=== PATIENT | female | born 1975 | race Caucasian/White ===

== ENCOUNTER 2018-08-04 07:14 | Emergency (ER) | payer BC ==
[~2018-08-04] VITALS: Ht 170.2 cm; Wt 99.0 kg
[2018-08-04 07:14] VITALS: BP 163/106
[~2018-08-04 07:14] MED LIST: METF500T16 PO
[2018-08-04] MEDS ORDERED: IV NORMAL SALINE 1,000ML 1,000 ML IV SCH (07:32)
--- NOTE | 2018-08-04 07:38 | PHYS DOC ---
Past History Past Medical History: Hypertension, Kidney Stones, Ovarian Cyst Past Surgical History: Cholecystectomy, Hysterectomy, Spleenectomy Alcohol Use: None Drug Use: None Adult General Chief Complaint Chief Complaint: FLANK PAIN HPI HPI Patient is a 43 year old female who presents with left flank pain, nausea, and vomiting. This started at approximately 4 AM today waking the patient up from sleep. No blood in the emesis. No diarrhea. No blood in the stool. Patient does have a previous history of kidney stones requiring lithotripsy which was performed in [place], [place]. This feels like her previous kidney stone. She denies any blood in the urine, and no dysuria. No fever. No position of comfort. No home medicines attempted. Patient is also treated for hypertension and has not taken her antihypertensives this morning. [] Review of Systems Review of Systems Constitutional: Denies fever or chills [] Eyes: Denies change in visual acuity, redness, or eye pain [] HENT: Denies nasal congestion or sore throat [] Respiratory: Denies cough or shortness of breath [] Cardiovascular: No chest pains or palpitations[] GI: See history of present illness[] : Denies dysuria or hematuria [] Musculoskeletal: Denies back pain or joint pain [] Integument: Denies rash or skin lesions [] Neurologic: Denies headache, focal weakness or sensory changes [] Endocrine: Denies polyuria or polydipsia [] All other systems were reviewed and found to be within normal limits, except as documented in this note. Allergies Allergies Allergies Coded Allergies Type Severity Reaction Last Updated Verified No Known Drug Allergies 06/26/15 No Physical Exam Physical Exam Constitutional: Well developed, well nourished, moderate discomfort, rocking on the bed, non-toxic appearance. [] HENT: Normocephalic, atraumatic, bilateral external ears normal, oropharynx moist, no oral exudates, nose normal. [] Eyes: PERRLA, EOMI, conjunctiva normal, no discharge. [] Neck: Normal range of motion, no tenderness, supple, no stridor. [] Cardiovascular:Heart rate regular rhythm, no murmur [] Lungs & Thorax: Bilateral breath sounds clear to auscultation [] Abdomen: Bowel sounds normal, soft, no tenderness, no masses, no pulsatile masses. [] Skin: Warm, dry, no erythema, no rash. [] Back: No tenderness, left CVA tenderness is present. [] Extremities: No tenderness, no cyanosis, no clubbing, ROM intact, no edema. [] Neurologic: Alert and oriented X 3, normal motor function, normal sensory function, no focal deficits noted. [] Psychologic: Affect normal, judgement normal, mood normal. [] EKG EKG [] Radiology/Procedures Radiology/Procedures CT scan of the abdomen and pelvis IMPRESSION: 1. Mild left renal hydronephrosis associated with a 3 mm obstructing ureteropelvic junction calculus. 2. Appendix is negative. 3. Nonobstructing small right renal calculi. 4. 5 x 2 cm left ovarian cystic mass. This could be further assessed with pelvic sonography. [] Course & Med Decision Making Course & Med Decision Making Pertinent Labs and Imaging studies reviewed. (See chart for details) ED course: Patient arrived, was placed in bed, and tolerated exam well. Patient was transported to and from [place] with ankle medications. Patient did receive pain relief with the medications administered. After the return of the laboratory and imaging findings, these were discussed with the patient who voiced understanding as well as the understanding the need for follow-up given the ovarian cystic structure post hysterectomy. Patient was discharged in improved condition. Medical decision making: This appears to be a kidney stone without evidence of infection, no evidence of a stone that will not pass. We'll start the patient on pain medicine as well as Flomax to assist with passage of the stone. Believe the ovarian cystic mass to be an incidental finding that can be followed as an outpatient. No evidence of appendicitis nor other intra-abdominal significant pathology that requires urgent or emergent intervention.[] Dragon Disclaimer Dragon Disclaimer This electronic medical record was generated, in whole or in part, using a voice recognition dictation system. Departure Departure: Impression: Primary Impression: Nephrolithiasis Disposition: 01 HOME, SELF-CARE Condition: GOOD Referrals: JANEEN RODRIGUEZ MD (PCP) Follow-up in 2 days Patient Instructions: Diet for Kidney Stones, Kidney Stones Additional Instructions: Follow-up with your primary care physician in 2 days. There was an incidental finding of left ovarian cystic mass 5 x 2 cm. This needs to be followed up by your primary care physician and can be further assessed with pelvic ultrasound. Drink plenty of fluids. Return to the ER if worsening pain, unable to tolerate liquids, or any other concerns. Scripts Hydrocodone Bit/Acetaminophen (NORCO 5-325 TABLET) 1 Each Tablet 1-2 TAB PO Q4-6HRS for severe pain, #20 TAB Prov: HERNANDO SPAULDING DO 08/04/18 Ondansetron Hcl (ZOFRAN) 4 Mg Tablet 1 TAB PO Q8HRS for nausea or vomiting, #30 TAB Prov: HERNANDO SPAULDING DO 08/04/18 Tamsulosin Hcl (FLOMAX) 0.4 Mg Cap.er.24h 1 CAP PO DAILY for kidney stone, #10 CAP 0 Refills Prov: HERNANDO SPAULDING DO 08/04/18 Meloxicam (MELOXICAM) 7.5 Mg Tablet 7.5 MG PO DAILY for PAIN, #20 TAB Prov: HERNANDO SPAULDING DO 08/04/18 HERNANDO SPAULDING DO Aug 04, 2018 07:38
[2018-08-04] MEDS ORDERED: KETOROLAC 30 MG/ML VIAL. IV ONE (07:45)
[2018-08-04] MEDS ORDERED: MORPHINE SULFATE 2 MG/ML DISP.SYRIN. IV/SQ PRN (07:45)
[2018-08-04] MEDS ORDERED: PROCHLORPERAZINE 10 MG/2 ML VIAL. IV ONE (07:45)
[2018-08-04 07:52] LABS: AMORPHOUS SEDIMENT,UR PRESENT /HPF; BACTERIA,URINE 0 /HPF (0-FEW); BILIRUBIN,URINE NEG (NEG); CLARITY,URINE CLOUDY; COLOR,URINE YELLOW; GLUCOSE,URINE NEG (NEG); NITRITE,URINE NEG (NEG); RBC,URINE >40 /HPF (0-2); SQUAMOUS EPITHELIAL CELL,UR OCC /LPF; UROBILINOGEN,URINE 0.2 mg/dL (0.2 mg/dL); WBC,URINE 0 /HPF (0-4)
[2018-08-04 08:12] LABS: BASO # 0.1 x10^3/uL (0.0-0.2); BASO % 1 % (0-3); EOS # 0.1 x10^3/uL (0.0-0.7); EOS % 1 % (0-3); HEMATOCRIT 43.2 % (36.0-47.0); LYMPH # 1.7 x10^3/uL (1.0-4.8); LYMPH % 22 % (24-48); MEAN CORPUSCULAR HEMOGLOBIN 30 pg (25-35); MEAN CORPUSCULAR HGB CONC 35 g/dL (31-37); MEAN CORPUSCULAR VOLUME 86 fL (79-100); MONO # 0.4 x10^3/uL (0.0-1.1); MONO % 5 % (0-9); NEUT # 5.5 x10^3uL (1.8-7.7); NEUT % 71 % (31-73); PLATELET COUNT 280 x10^3/uL (140-400); RED BLOOD COUNT 5.04 x10^6/uL (3.50-5.40); RED CELL DISTRIBUTION WIDTH 13.2 % (11.5-14.5); WHITE BLOOD COUNT 7.7 x10^3/uL (4.0-11.0)
[2018-08-04 08:23] LABS: ALBUMIN 4.1 g/dL (3.4-5.0); ALBUMIN/GLOBULIN RATIO 1.1 (1.0-1.7); CALCIUM 9.5 mg/dL (8.5-10.1); CREATININE 0.9 mg/dL (0.6-1.0); POTASSIUM 4.1 mmol/L (3.5-5.1); TOTAL BILIRUBIN 0.2 mg/dL (0.2-1.0); TOTAL PROTEIN 7.8 g/dL (6.4-8.2)
--- NOTE | 2018-08-04 08:34 | RAD ---
CT abdomen and pelvis without contrast HISTORY: Left-sided flank pain, history of renal stones. PQRS statement: CT scans at this facility use dose reduction including either automated exposure control, iterative reconstructions, and /or weight based radiation dosing via mA and kV modification when appropriate to reduce radiation dose to as low as reasonably achievable. TECHNIQUE: Helical multiplanar reconstructed noncontrast CT imaging of the abdomen and pelvis was acquired. Abdomen findings: Mild left renal hydronephrosis associated with a 3 mm left ureteral pelvic junction obstructing calculus. Small nonobstructing right renal calculi. Right renal upper pole 1.5 cm fluid density cyst with a density of 4 units and thin peripheral calcifications or layering calcium posteriorly. Cholecystectomy. Liver, pancreas, adrenals, spleen are unremarkable. Lung bases and bones are unremarkable. Thoracal lumbar disc disease with spinal canal narrowing at several levels. No obstruction or inflammation GI tract. Appendix is negative. No abdominal fluid. Pelvis findings: No bladder calculi. Hysterectomy. Left adnexal 5 x 2 cm cystic mass of the ovary. Right ovary is atrophic. Rectum and bones are unremarkable. Bony sclerosis pubic symphysis due to chronic arthritis. IMPRESSION: 1. Mild left renal hydronephrosis associated with a 3 mm obstructing ureteropelvic junction calculus. 2. Appendix is negative. 3. Nonobstructing small right renal calculi. 4. 5 x 2 cm left ovarian cystic mass. This could be further assessed with pelvic sonography. Electronically signed by: Skyler Feldman MD (08/04/2018 8:30 AM) [facility] [place]
[2018-08-04] MEDS ORDERED: MELO7.5T29 PO (08:48)
[2018-08-04] MEDS ORDERED: TAMS0.4C97 PO (08:48)
[2018-08-04] MEDS ORDERED: HYDR-3165 PO (08:48)
[2018-08-04] MEDS ORDERED: ONDA4TAB7 PO (08:48)
== END 2018-08-04 09:00 | disposition home or self-care (01) ==
LOC: ER 07:14
DX: N13.2 Hydronephrosis with renal and ureteral calculous obstruction (principal); R11.2 Nausea with vomiting, unspecified; I10 Essential (primary) hypertension; Z87.442 Personal history of urinary calculi; Z90.49 Acquired absence of other specified parts of digestive tract; Z90.710 Acquired absence of both cervix and uterus; Z90.81 Acquired absence of spleen
CPT/HCPCS: 36415; 74176; 80053; 81001; 83690; 85025; 96361; 96374; 96375; 99284; J0780; J1885; J2270; J7030